=== PATIENT | male | born 1950 | race Caucasian/White ===

== ENCOUNTER → 2016-06-04 | Outpatient (CLI) | payer MEDICARE, BC ==
[~2016-06-04] MED LIST: BISO1TAB10 PO; CELE200C PO; CETI10TA30 PO; HYDR-2163 PO; MOME220A5 IH; RANI150C PO; SILD50TA PO; VENTOLIN HFA18 GM IH; ZOLP10TA4 PO
--- NOTE | 2016-06-04 15:22 | KCIC ---
PROCEDURE Chest, two views. HISTORY Chest pain. FINDINGS Frontal and lateral views of the chest are obtained. There is no infiltrate, effusion or pneumothorax. There are coarse likely chronic interstitial markings. The heart is normal in size. There is nodular opacity overlying the right upper lobe secondary to a prominent 1st rib end. There is cervical spinal fusion instrumentation. There are few calcified granulomas. IMPRESSION No acute pulmonary finding. Electronically signed by: Nellie Spence (Jun 04, 2016 15:20:26)
== END | disposition home or self-care (01) ==
LOC: KCIC 14:58
PROVIDERS: ATTEND Internal Medicine Gastroenterology
DX: R07.9 Chest pain, unspecified (principal)
CPT/HCPCS: 71020

== ENCOUNTER → 2016-06-15 | Outpatient (CLI) | payer MEDICARE, BC ==
[~2016-06-15] VITALS: Ht 200.7 cm; Wt 83.9 kg
[~2016-06-15] MED LIST changes: +MORPHINE SULFATE 4 MG/ML DISP.SYRIN. IM ONE
--- NOTE | 2016-06-15 09:12 | RAD ---
Limited abdomen ultrasound study of the right upper quadrant Clinical indications: Right upper quadrant pain with nausea. Comparison: None Findings: The pancreas is not well visualized due to overlying bowel gas. However, there is a 3.6 cm hypoechoic nodule seen in the region of the head of the pancreas. The liver is homogeneous and measures 14.7 cm in length. The gallbladder is distended measuring up to 17 cm. Biliary sludge is seen within the gallbladder. Positive Rosenberg's sign was elicited during transducer examination of the gallbladder. Gallbladder wall measures 2 mm which is normal and no pericholecystic free fluid is evident. The common bile duct is abnormally distended measuring 12 mm. The length of the right kidney is 10.4 cm. No hydronephrosis or renal mass or perinephric fluid collections is seen on the right side. IMPRESSION: 3.6 cm hypoechoic nodule in the region of the head of the pancreas. This could represent pancreatic neoplasm causing obstruction since the common bile duct is distended measuring 12 mm and there is distention of the gallbladder which measures 17 cm. Biliary sludge is seen within the gallbladder. Positive Rosenberg's sign. Recommend abdomen CT with IV contrast for further evaluation. :
--- NOTE | 2016-06-15 10:02 | RAD ---
Indication abdominal pain for several months. Hepatobiliary scan was performed. 5.5 mCi of technetium labeled Choletec was administered. On the initial images, over a 1 hour timeframe, no activity was seen in the gallbladder. Subsequently 4 mg of morphine was administered intravenously and additional images, over a 30 minute time frame, were obtained. On the second set of images activity is seen in the gallbladder. IMPRESSION: Patent cystic duct
== END | disposition home or self-care (01) ==
LOC: US 06:50
PROVIDERS: ATTEND Internal Medicine Gastroenterology
DX: K21.9 Gastro-esophageal reflux disease without esophagitis (principal)
CPT/HCPCS: 76705; 78226; 96374; 96375; A9537; J2270

== ENCOUNTER → 2016-06-19 | Outpatient (CLI) | payer MEDICARE, BC ==
[~2016-06-19] MED LIST changes: +BARIUM SULFATE 2.1% 450 ML SUSP PO ONE; -MORPHINE SULFATE 4 MG/ML DISP.SYRIN. IM ONE
--- NOTE | 2016-06-19 16:19 | RAD ---
CT of the abdomen and pelvis without contrast, 06/19/2016: History: Pancreatic mass Multidetector CT imaging was performed without IV contrast due to the patient's given history of an iodine allergy. Oral contrast was administered for GI tract opacification. A tiny nonspecific 2.5 mm pulmonary nodule is noted posteriorly in the left lung base. The unopacified liver shows no abnormality. The gallbladder is mildly dilated. No dense gallstones are seen. The common hepatic and common bile ducts measure approximately 11-12 mm in width. No dense calculus is seen within those ducts. The pancreas is within normal limits in size. The pancreatic head measures approximately 2.8 cm in greatest AP diameter dimension and 3.3 cm in width. No definite pancreatic mass is seen on these noncontrast scans. There is mild mural thickening involving the adjacent second and third portions of the duodenum. Incomplete duodenal distention may be contributing to this appearance. The spleen is unremarkable. There is mild bilateral renal cortical scarring. The unopacified kidneys are otherwise unremarkable. No adrenal abnormality is seen. There is mild aortoiliac calcific plaquing without evidence of aneurysm. No abdominal or pelvic adenopathy is seen. The prostate gland is at the upper limits of normal in size. Scattered colonic diverticula are present, most numerous in the proximal sigmoid colon. No paracolonic inflammatory process is seen. The bowel loops are not dilated. No free fluid or free air is evident in the abdomen or pelvis. IMPRESSION: 1. Mild dilatation of the gallbladder and common hepatic duct again raises the possibility of a distal obstructive process such as an occult calculus. 2. No pancreatic mass is identified, although the lack of IV contrast enhancement limits the sensitivity of this exam. MR scanning of the pancreas with gadolinium may be useful for further evaluation. 3. Mural thickening involving the proximal duodenum suggesting nonspecific duodenitis. 4. Sigmoid diverticulosis. 5. Tiny nonspecific left basilar pulmonary nodule. Depending on the patient's risk factors, CT follow-up may be useful to establish stability.
== END | disposition home or self-care (01) ==
LOC: CT 09:04
PROVIDERS: ATTEND Internal Medicine Gastroenterology
DX: K86.9 Disease of pancreas, unspecified (principal); R91.1 Solitary pulmonary nodule
CPT/HCPCS: 74176

== ENCOUNTER → 2016-06-22 | Outpatient (CLI) | payer MEDICARE, BC ==
[~2016-06-22] MED LIST changes: -BARIUM SULFATE 2.1% 450 ML SUSP PO ONE; +HYDR12.53 PO; +PROP40TA PO
--- NOTE | 2016-06-22 12:37 | RAD ---
INDICATION:Abdominal pain and nausea COMPARISON: CT abdomen 06/19/2016 Technique: Multiplanar, multisequence MRI images are obtained through the abdomen without intravenous contrast. Additionally three-dimensional MRCP images obtained. FINDINGS: Abdominal aorta is not grossly aneurysmal. No hydronephrosis bilaterally. No dilated loops of bowel within the upper abdomen to suggest obstruction. The gallbladder has a distended appearance. No significant loss of signal on the out of phase images to suggest fatty infiltration. Hepatic duct is distended up to 11 mm. No definite peripancreatic edema. Subcentimeter T2 hyperintense lesion left lobe of liver. There is relatively to narrowing of the common bile duct distally originating approximately 2.5 cm from the ampulla. IMPRESSION: There is dilatation of the common hepatic duct and gallbladder with a region of narrowing seen within the common bile duct. This could be secondary to causes such as a stricture which could be either benign or malignant. This region of narrowing appears to originate approximately 2.5 cm from the ampulla. There is also some peripheral low signal intensity on T2-weighted images within the common bile duct in this region. Would be difficult to exclude a distal common bile duct stone given this finding and the more proximal dilatation. Subcentimeter T2 hyperintense lesion left lobe of the liver. Most common cause would be a small cyst or hemangioma unless the patient has a history of neoplasm.
== END | disposition home or self-care (01) ==
LOC: MRI 10:07
PROVIDERS: ATTEND Internal Medicine Gastroenterology
DX: K76.89 Other specified diseases of liver (principal); K82.8 Other specified diseases of gallbladder; R93.5 Abnormal findings on diagnostic imaging of other abdominal regions, including retroperitoneum; K83.8 Other specified diseases of biliary tract
CPT/HCPCS: 74181

== ENCOUNTER → 2016-06-26 | Day surgery (SDC) | payer MEDICARE, BC ==
[~2016-06-26] MED LIST changes: +DEXAMETHASONE SOD PHOS 20 MG/5 ML VIAL. ONE; +FAMOTIDINE 20 MG/2 ML VIAL ONE; +FENTANYL PF 100 MCG/2 ML VIAL. IV PRN; +FENTANYL PF 100 MCG/2 ML VIAL. ONE; +HYDROMORPHONE 2 MG/ML VIAL. IV PRN; +IOHEXOL 300 MG/ML 100ML VIAL. ONE; +IV RINGERS,LACTATED 1000ML 1,000 ML IV SCH; +LIDOCAINE 1% 1 ML SYRINGE. ID PRN; +LIDOCAINE 2% 100 MG/5 ML DISP.SYRIN. ONE; +ONDANSETRON PF 4 MG/2 ML VIAL. IV PRN; +ONDANSETRON PF 4 MG/2 ML VIAL. ONE; +PROCHLORPERAZINE 10 MG/2 ML VIAL. IV PRN; +PROPOFOL 20 ML IV ONE; +SUCCINYLCHOLINE 200 MG/10 ML VIAL. ONE
--- NOTE | 2016-06-26 17:14 | RAD ---
EXAM: ERCP. HISTORY: Fluoroscopy during endoscopic retrograde cholangiopancreatography. COMPARISON: None. FINDINGS: 4 fluoroscopic images are obtained intraoperatively. Fluoroscopy time 0.4 minutes. There is a long irregular stricture of the distal common duct. It is dilated more proximally. IMPRESSION: 1. Long irregular stricture along the distal common duct. Refer to operative report for more detail.
[2016-06-26 17:23] VITALS: BP 149/94
[2016-06-26 18:30] LABS: ALBUMIN 3.7 g/dL (3.4-5.0); DIRECT BILIRUBIN 3.8 mg/dL (0.0-0.2); TOTAL BILIRUBIN 5.3 mg/dL (0.2-1.0)
--- NOTE | 2016-06-29 14:58 | PATHOLOGY ---
CYTOPATHOLOGY REPORT CLINICAL HISTORY: Jaundice. SPECIMEN(S) RECEIVED: A.Brushing, Ampullary stricture CBD B.Brushing, ampullary stricture CBD FINAL DIAGNOSIS: A. Brushing, ampullary stricture CBD: - Atypical cells identified, cannot rule out malignancy. - Clusters of atypical cells identified amid benign appearing ductal epithelial cells. B. Brushing, ampullary stricture CBD: - Atypical cells identified, cannot rule out malignancy. - Clusters of atypical cells identified amid benign appearing ductal epithelial cells. COMMENT: The ampullary stricture CBD brushings appear similar and reveal clusters of atypical cells amid clusters of benign appearing ductal epithelial cells. Specimen A shows drying artifact. We cannot rule out the possibility of malignancy. The case is also examined by Dr. Josafat Duran, cytopathologist with Pathology, who concurs with the diagnosis. (JPM:; d/t: 06/29/16) PATHOLOGIST: Peterson Parks M.D. REPORT ELECTRONICALLY SIGNED BY: Peterson Parks M.D. DATE/TIME: 06/29/2016 14:57 GROSS PATHOLOGY: A. Brushing, Ampullary stricture CBD: The specimen is labeled "Niles Stokes" and consists of two fixed slides. B. Brushing, ampullary stricture CBD: The specimen is labeled "Niles Stokes" and consists of a brush tip in fixative. One ThinPrep slide was prepared. (CLT 06.27.2016) PHP MAGENTO DEVELOPER(S): DEANN Rainey([facility]) INITIAL CPT CODE(S): A; 23211 B; 73493 Professional services performed [place] [address] Technical services performed by [facility] at [address] [place] [address], [address] [address]. PATIENT: NILES STOKES /AGE: 812/18/1950 (Age: 65) SEX: M PATIENT #: [id number] ALT CASE #: SPECIMEN COLLECTION DATE: 06/27/2016 SPECIMEN RECEIVED DATE: 06/27/[address] [facility] [address] [place] [address], [address] [place] [address] PHONE: [phone] DIRECTOR: Jamal Bautista M.D. * * * END OF REPORT * * *
== END | disposition home or self-care (01) ==
LOC: SURG 14:13
PROVIDERS: ATTEND Internal Medicine Gastroenterology
DX: K83.1 Obstruction of bile duct (principal); M19.90 Unspecified osteoarthritis, unspecified site; J45.909 Unspecified asthma, uncomplicated; I10 Essential (primary) hypertension; K21.9 Gastro-esophageal reflux disease without esophagitis; Z72.89 Other problems related to lifestyle; Z87.891 Personal history of nicotine dependence; Z98.890 Other specified postprocedural states
CPT/HCPCS: 43260; 74330; 80076; C1757; J0330; J1100; J2405; J2704; J3010; Q9967; S0028; 36415; 86301

== ENCOUNTER → 2016-09-11 | Outpatient (CLI) | payer MEDICARE, BC ==
[2016-09-11] VITALS (7 sets, daily range): BP systolic 99–126; BP diastolic 61–84
[~2016-09-11] VITALS: Ht 170.2 cm; Wt 76.2 kg
[~2016-09-11] MED LIST changes: -DEXAMETHASONE SOD PHOS 20 MG/5 ML VIAL. ONE; -FAMOTIDINE 20 MG/2 ML VIAL ONE; -FENTANYL PF 100 MCG/2 ML VIAL. IV PRN; -FENTANYL PF 100 MCG/2 ML VIAL. ONE; +HEPARIN PF 500 UNIT/5 ML DISP.SYRIN. IV ONE; +HYDR-2762 PO; -HYDROMORPHONE 2 MG/ML VIAL. IV PRN; -IOHEXOL 300 MG/ML 100ML VIAL. ONE; -IV RINGERS,LACTATED 1000ML 1,000 ML IV SCH; -LIDOCAINE 1% 1 ML SYRINGE. ID PRN; +LIDOCAINE 1%/EPI 1:100,000 20 ML VIAL. INJ ONE; +LIDOCAINE 1%/EPI 1:100,000 20 ML VIAL. ONE; -LIDOCAINE 2% 100 MG/5 ML DISP.SYRIN. ONE; +MIDAZOLAM HCL/PF 5 MG/5 ML VIAL. IV ONE; +MIDAZOLAM HCL/PF 5 MG/5 ML VIAL. ONE; -ONDANSETRON PF 4 MG/2 ML VIAL. IV PRN; -ONDANSETRON PF 4 MG/2 ML VIAL. ONE; -PROCHLORPERAZINE 10 MG/2 ML VIAL. IV PRN; -PROPOFOL 20 ML IV ONE; -SUCCINYLCHOLINE 200 MG/10 ML VIAL. ONE; +TRAM50TA PO; +VANCOMYCIN 1GM IVPB FOR OMNI 250 ML IV ONE; +VANCOMYCIN 1GM IVPB FOR OMNI 250 ML ONE; +fentaNYL PF VIAL 250 MCG/5 ML VIAL IV ONE; +fentaNYL PF VIAL 250 MCG/5 ML VIAL ONE
[2016-09-11 09:16] LABS: BASO % 1 % (0-3); EOS % 4 % (0-3); HEMATOCRIT 35.5 % (39.0-53.0); HEMOGLOBIN 12.6 g/dL (13.0-17.5); LYMPH # 0.8 x10^3/uL (1.0-4.8); LYMPH % 26 % (24-48); MEAN CORPUSCULAR HEMOGLOBIN 32 pg (25-35); MEAN CORPUSCULAR HGB CONC 35 g/dL (31-37); MEAN CORPUSCULAR VOLUME 91 fL (79-100); MONO % 3 % (0-9); NEUT % 66 % (31-73); PLATELET COUNT 121 x10^3/uL (140-400); RED BLOOD COUNT 3.92 x10^6/uL (4.30-5.70); RED CELL DISTRIBUTION WIDTH 13.3 % (11.5-14.5); WHITE BLOOD COUNT 3.1 x10^3/uL (4.0-11.0)
[2016-09-11 09:28] LABS: INR 1.2 (0.8-1.1); PROTHROMBIN TIME PATIENT 14.9 SEC (11.7-14.0)
--- NOTE | 2016-09-11 12:06 | PDOC ---
MODERATE SEDATION ASSESSMENT RISKS/ALTERNATIVES Risks/Alternatives Risks and alternatives of this type of sedation and procedure discussed with: RISK/ALTERNATIVES: Patient H & P ON CHART H & P H & P on chart and reviewed for co-morbid conditions and appropriate labs. H&P ON CHART: Yes STATUS PREG STATUS ASSESSED: N/A MEDS/ALLERGIES REVIEWED Meds/Allergies Reviewed Medications and Allergies including time and route of recently administered narcotics and sedatives. MEDS/ALLERGIES REVIEWED: Yes ASA RATING ASA RATING: III AIRWAY ASSESSMENT Airway Assessment Airway patency, oral function limitations, presence of caps, crowns, dentures, partials, and ability to extend neck assessed. AIRWAY ASSESSMENT: Yes MALLAMPATI SCORE MALLAMPATI SCORE: II PRE-SEDATION ASSESSMENT PRE-SEDATION ASSESSMENT: Yes DAPHNEY MOSER MD September 11, 2016 12:06
--- NOTE | 2016-09-11 12:09 | PDOC1 ---
History and Physical Date of Procedure Date of Admission 09/11/16 Procedure Procedure Image guided Power Port insertion Indication Indication 65 YO male with pancreatic cancer, s/p Whipple procedure---Port requested for chemotx. Past Medical History Past Medical History See Nursing Pre procedure PMH Past Surgical History Past Surgical History See Nursing Pre procedure PSH Current Medications Current Medications Current Medications Cefazolin Sodium 1 gm/Sodium Chloride 50 ml @ 100 mls/hr 1X ONCE IV Last administered on 09/11/16 09:00; Start 09/11/16 at 09:00; Stop 09/11/16 at 09:29; Status DC Midazolam HCl (Versed) 5 mg STK-MED ONCE .ROUTE ; Start 09/11/16 at 11:09; Stop 09/11/16 at 11:10; Status DC Fentanyl Citrate (Fentanyl 5ml Vial) 250 mcg STK-MED ONCE .ROUTE ; Start at 11:09; Stop 09/11/16 at 11:10; Status DC Cefazolin Sodium 50 ml @ As Directed STK-MED ONCE IV ; Start 09/11/16 at 11:09; Stop 09/11/16 at 11:10; Status DC Heparin Sodium (Porcine) (Hep Lock Adult) 500 unit STK-MED ONCE IV ; Start at 11:11; Stop 09/11/16 at 11:12; Status DC Lidocaine/ Epinephrine (Xylocaine 1%-Epi 1:100,000) 20 ml STK-MED ONCE .ROUTE ; Start 09/11/16 at 11:11; Stop 09/11/16 at 11:12; Status DC Heparin Sodium/ Sodium Chloride 500 ml @ As Directed STK-MED ONCE .ROUTE ; Start 09/11/16 at 11:11; Stop 09/11/16 at 11:12; Status DC Vancomycin HCl 250 ml @ As Directed STK-MED ONCE .ROUTE ; Start 09/11/16 at 11: 11; Stop 09/11/16 at 11:12; Status DC Heparin Sodium/ Sodium Chloride 1,000 unit 1X ONCE IART Last administered on 11:30; Start 09/11/16 at 11:15; Stop 09/11/16 at 11:24; Status DC Midazolam HCl (Versed) 5 mg 1X ONCE IV Last administered on 09/11/16 11:59; Start 09/11/16 at 11:15; Stop 09/11/16 at 11:24; Status DC Fentanyl Citrate (Fentanyl 5ml Vial) 250 mcg 1X ONCE IV Last administered on 11:59; Start 09/11/16 at 11:15; Stop 09/11/16 at 11:24; Status DC Lidocaine/ Epinephrine (Xylocaine 1%-Epi 1:100,000) 20 ml 1X ONCE INJ Last administered on 09/11/16 11:54; Start 09/11/16 at 11:30; Stop 09/11/16 at 11:31; Status DC Cefazolin Sodium 50 ml @ 0 mls/hr 1X ONCE IV Last administered on 09/11/16 11: 34; Start 09/11/16 at 11:30; Stop 09/11/16 at 11:31; Status DC Heparin Sodium (Porcine) (Hep Lock Adult) 500 unit 1X ONCE IV ; Start 09/11/16 at 11:30; Stop 09/11/16 at 11:31; Status DC Vancomycin HCl 250 ml @ 0 mls/hr 1X ONCE IV Last administered on 09/11/16 11: 45; Start 09/11/16 at 11:45; Stop 09/11/16 at 11:47; Status DC Active Scripts Active Reported Tramadol Hcl 50 Mg Tablet 1 Tab PO TID Hydrocodone-Apap 7.5-325 (Hydrocodone Bit/Acetaminophen) 1 Each Tablet 1 Tab PO PRN Q6-8HRS PRN Hydrochlorothiazide Capsule (Hydrochlorothiazide) 12.5 Mg Capsule 12.5 Mg PO DAILY Propranolol Hcl 40 Mg Tablet 40 Mg PO BID Ventolin Hfa Inhaler (Albuterol Sulfate) 18 Gm Hfa.aer.ad 18 Gm IH DAILY Zolpidem Tartrate 10 Mg Tablet 10 Mg PO DAILY Viagra (Sildenafil Citrate) 50 Mg Tablet 50 Mg PO DAILY Ranitidine Hcl 150 Mg Capsule 150 Mg PO DAILY Cetirizine Hcl 10 Mg Tab.chew 10 Mg PO DAILY Asmanex (Mometasone Furoate) 220 Mcg Aer.pow.ba 220 Mcg IH DAILY Celebrex (Celecoxib) 200 Mg Capsule 200 Mg PO DAILY Allergies Allergies: Coded Allergies: shellfish derived (Verified Allergy, Severe, 09/11/16) iodine (Verified Allergy, Intermediate, 09/11/16) morphine (Unverified Allergy, Intermediate, 09/11/16) Physical Exam Vital Signs Vital Signs Date Time Temp Pulse Resp B/P (MAP) Pulse Ox O2 Delivery O2 Flow Rate FiO2 09/11/16 12:00 66 16 100 Room Air 09/11/16 09:00 98.0 126/79 (95) 98.0 Lungs: Clear to auscultation Heart: Regular rate Psych/Mental Status: Mental status NL Assessment Assessment 65 YO male with pancreatic cancer, s/p Whipple procedure. Problems: Plan Plan Sono/fluoro guided Power Port insertion requested by oncology for chemotx. DAPHNEY MOSER MD September 11, 2016 12:09
--- NOTE | 2016-09-11 12:12 | PDOC ---
Exam Canoe Builder Canoe Builder Sangeeta Audit Tech Audit Tech Jazmin Potter Pre-Procedure Diagnosis Pre-Procedure Diagnosis 65 YO male s/p Whipple procedure for pancreatic cancer Post-Procedure Diagnosis Post-Procedure Diagnosis Same Procedure Performed Procedure Performed Sono/fluoro guided Power Port insertion Type of Anesthesia Type of Anesthesia Local + Mod sedation Estimated Blood Loss EBL: Minimal Drain/Tubes Drains/Tubes Rt IJ 8F tunneled Power Port Condition of Patient Condition of Patient Stable. No apparent complication. Disposition Disposition Home from [facility] post recovery, if no problems. OK to use Power Port. F/u with Dr Kirk. Full report to follow. DAPHNEY MOSER MD September 11, 2016 12:12
--- NOTE | 2016-09-12 07:01 | RAD ---
Ultrasound and fluoroscopy guided right IJ power port insertion Indication: 65-year-old male status post Whipple procedure for pancreatic cancer. Image guided power port insertion has been requested by oncology for chemotherapy. Fluoroscopy time: 0.9 minutes Kerma-area product: 2 Gycm2 Moderate sedation: 41 minutes moderate sedation was provided utilizing a total of 3.5 mg percent and 175 mcg fentanyl, IV. The patient was appropriately monitored by a qualified independent observer throughout the course of moderate sedation. Antibiotic: A single dose of Ancef was administered within 1 hour of the procedure start time. Consent: The procedure was explained in its entirety to the patient and/or the patient's designated inbound call center representative by a member of the treatment team. This included a discussion of risks and benefits and commonly accepted alternatives to the procedure, as well as expected consequences of no treatment at all. Discussion of risks included, but was not limited to, those that are most frequent and those that are rare, but possibly severe or life-threatening, as well as the possibility of unforeseen complications. Sterility: All elements of maximal sterile barrier technique, including the use of a cap, mask, sterile gown, sterile gloves, large sterile sheet, appropriate hand hygiene, and 2% chlorhexidine for cutaneous antisepsis (or acceptable alternative antiseptic per current guidelines) were utilized. Procedure: Informed consent was obtained from the patient. He was placed supine on the angiography table. Preliminary ultrasound examination of right neck revealed wide patency of right internal jugular vein, which was documented with a single hard copy ultrasound image. Right neck and upper chest were then prepped and draped in the usual sterile fashion, utilizing all elements of maximal sterile barrier technique, as described above. Moderate sedation was provided with IV Versed and fentanyl. 1 g Ancef was given IV, prophylactically. Using aseptic technique and local anesthesia, a small skin incision was made lateral to right internal jugular vein, just above clavicle. Using aseptic technique, local anesthesia, direct ultrasound guidance, and the micropuncture system, successful percutaneous entry was achieved into right internal jugular vein. The right IJ venostomy tract was then dilated and the 8 Macanese catheter from a Bard power port system was easily advanced centrally through an 8.5 Macanese peel-away sheath, and was positioned with this tip at the level of upper right atrium utilizing fluoroscopic guidance. A skin site suitable for placement of the power port body was then selected and marked along upper anterior aspect of right chest, overlying anterior aspect of right second rib. Using aseptic technique and local anesthesia, a horizontally oriented skin incision was made in this location. A subcutaneous chest wall pocket was then created and was packed with vancomycin soaked gauze. A subcutaneous tunnel was then fashioned between the chest wall pocket and the initial supraclavicular incision. The 8 Macanese power port catheter was then pulled through the subcutaneous tunnel from superior to inferior, utilizing the tunneling device provided. The catheter was then trimmed to an appropriate length and was connected to the power port body, which had been previously flushed with, and soaked in, vancomycin solution. The vancomycin soaked gauze was then removed from the chest wall pocket, which was then copiously irrigated with vancomycin solution. The power port body was then easily introduced into the chest wall pocket and was secured in place utilizing two 2-0 Vicryl sutures. The power port was then accessed utilizing a Clarke needle, was documented to flush and aspirate normally, and was packed with heparinized saline. The chest incision was then closed with 2-0 Vicryl, 4-0 Vicryl, Steri-Strips, and sterile dressing. The small supraclavicular incision was closed with 4-0 Vicryl, Steri-Strips, and sterile dressing. Patient tolerated the procedure well without apparent complication. Satisfactory position of the power port was confirmed with a single fluoroscopic spot image. Impression: Successful, uneventful ultrasound and fluoroscopy guided placement of right IJ 8 Macanese tunneled power port, as described.
== END | disposition home or self-care (01) ==
LOC: INTRAD 08:26
PROVIDERS: ATTEND Internal Medicine Hematology & Oncology
DX: C25.9 Malignant neoplasm of pancreas, unspecified (principal); I10 Essential (primary) hypertension; J45.909 Unspecified asthma, uncomplicated; K21.9 Gastro-esophageal reflux disease without esophagitis; M19.90 Unspecified osteoarthritis, unspecified site; Z72.89 Other problems related to lifestyle
CPT/HCPCS: 36415; 36561; 76937; 77001; 85027; 85610; C1751; C1892; J0690; J2250; J3010; J3370; J3490